=== PATIENT | male | born 1995 | race Asian ===

== ENCOUNTER 2021-01-25 10:11 | Emergency (ER) | payer MEDICAID ==
[~2021-01-25] VITALS: Ht 180.3 cm; Wt 79.5 kg
[2021-01-25] MEDS ORDERED: IRON15TA3 PO (10:14)
[2021-01-25 10:20] VITALS: BP 99/52
[2021-01-25 11:30] LABS: COVID AG,FIA SOURCE NASOPHARYNGEAL
== END 2021-01-25 10:53 | disposition home or self-care (01) ==
LOC: EMS 10:16
DX: Z20.822 Contact with and (suspected) exposure to COVID-19 (principal)
CPT/HCPCS: 87426; 99283; C9803